=== PATIENT | male | born 1965 | race Caucasian/White ===

== ENCOUNTER 2025-01-29 15:23 | Emergency (ER) | payer MEDICARE, SELFPAY ==
[2025-01-29] MEDS ORDERED: Proparacaine 0.5% Opth 15 ML BOT ONE (16:30)
[2025-01-29] MEDS ORDERED: Fluorescein Opthalmic Strip ONE (16:30)
== END 2025-01-29 16:55 | disposition home or self-care (01) ==
LOC: ERS 15:23
DX: S05.01XA Injury of conjunctiva and corneal abrasion without foreign body, right eye, initial encounter (principal); X58.XXXA Exposure to other specified factors, initial encounter
CPT/HCPCS: 99283